=== PATIENT | female | born 1995 | race Caucasian/White ===

== ENCOUNTER 2017-12-05 12:51 | Outpatient (RCR) | payer BC, OTHER, MEDICAID, SELFPAY ==
[2017-11-20 12:35] LABS: Mucous, Urine 0 SEEN /hpf (<or=2+); Red Blood Cells-Urine 0 SEEN /hpf (0-5)
[2017-11-20 13:24] LABS: Color, Urine Yellow (Yellow); Glucose, Dipstick Normal (Normal); Ketone-Dipstick Negative (Negative); Leukocyte Esterase-Dipstick 25 /ul (Negative); Nitrite-Dipstick Negative (Negative); Occult Blood-Urine Negative /ul (Negative); Protein-Dipstick Negative (Negative); Specific Gravity, Urine 1.025 (1.002-1.030); Urine Bilirubin Dipstick Negative (Negative); Urine Clarity Sl. Cloudy (Clear); Urine Urobilinogen Normal (Normal)
[2017-11-20 13:40] LABS: Bacteria 2+ /hpf (None Seen); Squamous Epithelial Cells - UA 0-5 SEEN /hpf (5-10); White Blood Cells 0-5 SEEN /hpf (0-5)
[2017-11-20 13:44] LABS: Erythrocyte Sedimentation Rate 25 mm/hr (0-20)
[2017-11-20 13:58] LABS: Albumin, Serum 3.6 g/dL (3.4-5.0); BUN 17 mg/dL (7-18); BUN/Creat Ratio 25.3 RATIO (10-20); Creatinine, Serum 0.67 mg/dL (0.55-1.02); EST Glomerular Filtration Rate 115 mL/min (>60); Est Glom Filt Rate - Afr Amer 139 mL/min (>60); Glucose 90 mg/dL (70-110); Protein, Total 7.9 g/dL (6.4-8.2)
[2017-11-20 13:59] LABS: ALB/GLOB Ratio 0.8 RATIO (0.9-2.4); AST(SGOT) 26 U/L (15-37); Alanine Aminotransfer ALT/SGPT 35 U/L (12-78); Alkaline Phosphatase 88 U/L (45-117); Anion Gap 10 (5-15); CRP 5.07 mg/L (0.0-3.0); Chloride 103 mmol/L (98-107); Globulin 4.3 g/dL (2.2-4.2); Potassium 4.1 mmol/L (3.5-5.1); Sodium Level 139 mmol/L (136-145)
[2017-11-21 13:50] LABS: Anti-dsDNA Ab 1 IU/mL (0-9)
[2017-11-21 17:05] LABS: Complement C3 144 mg/dL (82-167)
[2017-12-05 13:14] LABS: Hematocrit 43.5 % (37-47); Hemoglobin 14.8 g/dl (12.0-15.0); Mean Corpuscular Hgb 31.3 pg (27.0-32.0); Mean Platelet Vol. 11.3 fl (6.2-12.0); Platelet Count 207 K/mm3 (150-450); RBC Distribution Width CV 12.2 % (11.6-14.6); RBC Distribution Width SD 40.9 fl (35.1-43.9); Red Blood Count 4.73 M/mm3 (4.2-5.4); White Blood Count 6.2 K/mm3 (4.4-11.0)
[2017-12-05 13:15] LABS: Scan Indicated on CBC? Y/N NO
== END 2017-12-05 13:50 | disposition home or self-care (01) ==
LOC: LAB 12:51
PROVIDERS: Family Provider Family Medicine; PCP Family Medicine; Visit Provider Internal Medicine Rheumatology
DX: M32.9 Systemic lupus erythematosus, unspecified (principal)
CPT/HCPCS: 36415; 80053; 81001; 85027; 85652; 86140; 86160; 86225

== ENCOUNTER → 2018-02-12 08:05 | Outpatient (CLI) | payer BC, OTHER, MEDICAID, SELFPAY ==
[2018-02-12 08:25] LABS: Mucous, Urine 0 SEEN /hpf (<or=2+); Red Blood Cells-Urine 0 SEEN /hpf (0-5)
[2018-02-12 09:12] LABS: Color, Urine Yellow (Yellow); Glucose, Dipstick Normal (Normal); Ketone-Dipstick Negative (Negative); Leukocyte Esterase-Dipstick 25 /ul (Negative); Nitrite-Dipstick Negative (Negative); Occult Blood-Urine Negative /ul (Negative); Protein-Dipstick Negative (Negative); Specific Gravity, Urine 1.015 (1.002-1.030); Urine Bilirubin Dipstick Negative (Negative); Urine Clarity Sl. Cloudy (Clear); Urine Urobilinogen Normal (Normal)
[2018-02-12 09:13] LABS: Absolute Lymphocyte Count 1.35 X10^3/ul (0.83-4.51); Absolute Neutrophil Count 2.8 X10^3/uL (2.0-7.7); Basophil# 0.02 X10^3/uL; Basophil% 0.4 % (0-1); Eosinophil# 0.11 X10^3/uL; Eosinophils% 2.2 % (0-5); Hematocrit 42.9 % (37-47); Hemoglobin 14.8 g/dl (12.0-15.0); Lymphocyte # 1.35 X10^3/ul (4.0); Lymphocyte % 27.4 % (19-41); Mean Corp Hgb Conc 34.5 g/gl (32-36); Mean Corpuscular Hgb 31.8 pg (27.0-32.0); Mean Corpuscular Volume 92.3 fL (81-99); Mean Platelet Vol. 11.6 fl (6.2-12.0); Monocyte# 0.61 X10^3/uL; Monocyte% 12.4 % (0-10); Neutrophil # 2.83 X10^3/uL (2.7-7.7); Neutrophil % 57.4 % (47-70); Platelet Count 156 K/mm3 (150-450); RBC Distribution Width CV 11.7 % (11.6-14.6); RBC Distribution Width SD 39.3 fl (35.1-43.9); Red Blood Count 4.65 M/mm3 (4.2-5.4); White Blood Count 4.9 K/mm3 (4.4-11.0)
[2018-02-12 09:15] LABS: POSITIVE COUNT NO; POSITIVE DIFFERENTIAL NO; POSITIVE MORPHOLOGY NO
[2018-02-12 09:22] LABS: Bacteria 1+ /hpf (None Seen); Squamous Epithelial Cells - UA 5-10 SEEN /hpf (5-10); White Blood Cells 0-5 SEEN /hpf (0-5)
[2018-02-12 09:44] LABS: AST(SGOT) 23 U/L (15-37); Alanine Aminotransfer ALT/SGPT 28 U/L (13-56); Albumin, Serum 3.6 g/dL (3.2-5.0); BUN 16 mg/dL (7-18); CRP 3.03 mg/L (0.0-3.0); Creatinine, Serum 0.71 mg/dL (0.55-1.02); EST Glomerular Filtration Rate 108 mL/min (>60); Est Glom Filt Rate - Afr Amer 131 mL/min (>60)
[2018-02-13 13:47] LABS: Complement C3 148 mg/dL (82-167)
[2018-02-13 16:29] LABS: Anti-dsDNA Ab 1 IU/mL (0-9)
== END ==
PROVIDERS: Family Provider Family Medicine; PCP Family Medicine; Visit Provider Internal Medicine Rheumatology
DX: M32.9 Systemic lupus erythematosus, unspecified (principal)
CPT/HCPCS: 36415; 81001; 82040; 82565; 84450; 84460; 84520; 85025; 86140; 86160; 86225; 87086; 87088

== ENCOUNTER 2018-07-24 09:52 | Emergency (ER) | payer BC, OTHER, MEDICAID, SELFPAY ==
[2018-07-24 09:54] VITALS: BP 120/87; PULSE 127; RESP 18; TEMP 37; O2SAT 97; BMI 32.7
--- NOTE | 2018-07-24 10:14 | CT_ITS ---
STUDY: CT ABDOMEN AND PELVIS WITH CONTRAST REASON FOR EXAM: Female, 23 years old. Right-sided abdominal pain. History of Angleman syndrome. RADIATION DOSAGE (If Supplied By Facility): CTDIvol = ( 17.02 ) mGy, DLP = ( 2071.12 ) mGycm TECHNIQUE: Transaxial images were obtained from the dome of the diaphragm to the symphysis pubis without oral contrast. 100 ml of Isovue 300 contrast was administered. Sagittal and coronal images were reconstructed. Individualized dose optimization techniques were used for this CT. COMPARISON: None. FINDINGS: The visualized lung bases are unremarkable. The visualized portions of the heart are within normal limits. Normal liver. Normal gallbladder and extrahepatic biliary system. Normal spleen. Normal pancreas. Normal bilateral adrenal glands. Stable focal scar along the posterior aspect of the right kidney. Normal left kidney. Normal visualized stomach. Normal small intestine. Normal colon. The appendix is visualized and appears normal. Normal abdominal aorta. Normal inferior vena cava. There is borderline retroperitoneal lymphadenopathy with enlarged nodes no greater than 10mm in the short axis diameter. Normal urinary bladder. Small amount of free fluid in the cul-de-sac. Follicles are seen in both ovaries. Small benign-appearing lymph nodes in the inguinal regions bilaterally. Normal abdominal wall. Stable spondylolysis of the pars interarticularis of the L5 vertebrae. CT/Abdomen/Pelvis W IV Cont ONLY IMPRESSION: Stable focal scar in the posterolateral aspect of the right kidney. Small amount of free fluid in the cul-de-sac. Bilateral ovarian follicles. Electronically Signed: Leoncio Merlos MD at 12:04 EDT Tel [phone], Service support ,
[2018-07-24] MEDS: Ondansetron 4 MG/2 ML Vial IV (10:36)
[2018-07-24] MEDS: 0.9% Normal Saline 1,000 ML 1000 ML IV (10:36)
[2018-07-24 10:43] LABS: Absolute Lymphocyte Count 0.86 X10^3/ul (0.83-4.51); Absolute Neutrophil Count 8.5 X10^3/uL (2.0-7.7); Basophil# 0.01 X10^3/uL; Basophil% 0.1 % (0-1); Eosinophil# 0.03 X10^3/uL; Eosinophils% 0.3 % (0-5); Hematocrit 42.2 % (37-47); Lymphocyte # 0.86 X10^3/ul (4.0); Mean Corp Hgb Conc 33.2 g/gl (32-36); Mean Corpuscular Volume 93.4 fL (81-99); Mean Platelet Vol. 10.9 fl (6.2-12.0); Monocyte# 1.33 X10^3/uL; Monocyte% 12.4 % (0-10); Neutrophil # 8.52 X10^3/uL (2.7-7.7); Neutrophil % 79.2 % (47-70); Platelet Count 147 K/mm3 (150-450); RBC Distribution Width CV 11.8 % (11.6-14.6); Red Blood Count 4.52 M/mm3 (4.2-5.4); White Blood Count 10.8 K/mm3 (4.4-11.0)
[2018-07-24 10:44] LABS: POSITIVE COUNT NO; POSITIVE DIFFERENTIAL NO; POSITIVE MORPHOLOGY NO
[2018-07-24 10:49] LABS: Color, Urine Yellow (Yellow); Glucose, Dipstick Normal (Normal); Ketone-Dipstick Negative (Negative); Leukocyte Esterase-Dipstick 100 /ul (Negative); Nitrite-Dipstick Positive (Negative); Occult Blood-Urine 25 /ul (Negative); Protein-Dipstick 30 mg/dl (Negative); Specific Gravity, Urine 1.015 (1.002-1.030); Urine Bilirubin Dipstick Negative (Negative); Urine Clarity Sl. Cloudy (Clear); Urine Urobilinogen Normal (Normal)
[2018-07-24 10:55] LABS: Bacteria 4+ /hpf (None Seen); Mucous, Urine 1+ /hpf (<or=2+); Red Blood Cells-Urine 0-5 SEEN /hpf (0-5); Squamous Epithelial Cells - UA 5-10 SEEN /hpf (5-10); White Blood Cells 10-25 SEEN /hpf (0-5)
[2018-07-24 11:05] LABS: AST(SGOT) 18 U/L (15-37); Alanine Aminotransfer ALT/SGPT 28 U/L (13-56); Albumin, Serum 3.7 g/dL (3.2-5.0); Alkaline Phosphatase 93 U/L (45-117); Anion Gap 8 (5-15); BUN 15 mg/dL (7-18); BUN/Creat Ratio 18.7 RATIO (10-20); Bilirubin, Direct 0.14 mg/dL (0.00-0.30); Calcium,Total 9.3 mg/dL (8.5-10.1); Chloride 101 mmol/L (98-107); EST Glomerular Filtration Rate 93 mL/min (>60); Est Glom Filt Rate - Afr Amer 113 mL/min (>60); Estimated Creatinine Clearance 97.57 ml/min; Globulin 4.4 g/dL (2.2-4.2); Glucose 88 mg/dL (74-106); Lipase 69 U/L (73-393); Potassium 4.6 mmol/L (3.5-5.1); Protein, Total 8.1 g/dL (6.4-8.2); Sodium Level 135 mmol/L (136-145)
[2018-07-24 11:26] LABS: Pregnancy, Serum, hCG Quali. NEGATIVE Negative (0-9 Nonpreg)
[2018-07-24 12:26] VITALS: BP 111/76; PULSE 82; RESP 16; O2SAT 98
--- NOTE | 2018-07-24 12:44 | ED.DCSUM_ITS ---
- ER Visit Summary Date of Service: 07/24/18 Chief Complaint: Fever and abdominal pain History of Present Illness: The patient is a 23 F who is nonverbal due to a chronic neurological syndrome. Yesterday started having some mild right-sided abdominal. Nausea without vomiting. No significant diarrhea. Similar episode in the past with a renal abscess. She still has her appendix. Patient herself is unable to give any history. History per the mom in the room. Physical Examination: Current temperature 98.6. HEENT exam unremarkable. Moist and pink. No erythema or exudate. Neck nontender. Lungs clear to auscultation bilaterally. Heart tachycardic no murmur. Abdomen soft nondistended normal bowel sounds no peritoneal signs. Absolutely no McBurney's point tenderness. No Andres sign. No hernias or masses. No distention. No obstruction. Moving all 4 extremities. Neurologically she is awake her eyes are open. Test Results: CT abdomen pelvis with IV contrast shows a stable scar in the right kidney. And bilateral ovarian follicles. The appendix is seen and is unremarkable. CBC shows a white count of 10. Platelet count 147,000. Electrolytes are unremarkable. Liver enzymes are normal. Lipase normal. UA shows 10-25 white cells 5 to epithelial cells 4+ bacteria. A culture was sent. test is negative. Emergency Department Course and Treatment: Repeat exam patient is doing well at 1240. Abdomen is benign. She will be treated with 1 p.o. Keflex here in the emergency department. Treatment Plan: Keflex 4 times daily for 7 days. Tylenol and Motrin for fever. Follow-up with a primary care physician Dr. Deejay Chicas iii. Disposition: Discharge Impression: Abdominal pain with fever secondary to acute UTI This note was generated with [employer] dictation software. It may contain incorrect words, spelling, and punctuation that were not noted in review of the chart prior to signing ED Disposition - Plan for ED Patient: Chief Complaint: Abd Pain Referrals: Deejay Chicas III, MD [Primary Care Provider] -
--- NOTE | 2018-07-24 12:44 | ED.DEP ---
ED Disposition - Plan for ED Patient: Disposition: Home or Assisted Living Chief Complaint: Abd Pain Instructions: ED UTI Cystitis Female Prescriptions: Cephalexin [Keflex] 500 mg PO Q6 #30 cap Fluconazole [Diflucan] 200 mg PO X1 #2 tab Referrals: Deejay Chicas III, MD [Primary Care Provider] - 3-5 Days if not improving Additional Instructions: Plenty of fluids and rest. Keflex 1 pill 4 times a day till gone. Tylenol and Motrin for fever. Return if doing worse or follow-up your primary care physician to ensure she is improving.
[2018-07-24] MEDS: Cephalexin 250 MG Capsule 500 MG PO (12:46)
[2018-07-24 12:51] VITALS: BP 118/75; PULSE 85; RESP 16; O2SAT 98
== END 2018-07-24 13:00 | disposition home or self-care (01) ==
PROVIDERS: Emergency Provider Emergency Medicine; Family Provider Family Medicine; PCP Family Medicine
DX: N39.0 Urinary tract infection, site not specified (principal); R50.9 Fever, unspecified; R10.9 Unspecified abdominal pain; Z79.899 Other long term (current) drug therapy
CPT/HCPCS: 74177; 80048; 80076; 81001; 83690; 84703; 85025; 87077; 87086; 87088; 87186; 96361; 96374; 99284; J7030; Q9967; J2405

== ENCOUNTER 2018-08-13 16:23 | Outpatient (RCR) | payer BC, OTHER, MEDICAID, SELFPAY ==
[2018-08-13 17:12] LABS: Absolute Lymphocyte Count 2.12 X10^3/ul (0.83-4.51); Absolute Neutrophil Count 3.1 X10^3/uL (2.0-7.7); Basophil# 0.02 X10^3/uL; Basophil% 0.3 % (0-1); Eosinophil# 0.11 X10^3/uL; Eosinophils% 1.8 % (0-5); Hematocrit 40.5 % (37-47); Hemoglobin 13.4 g/dl (12.0-15.0); Lymphocyte # 2.12 X10^3/ul (4.0); Lymphocyte % 35.5 % (19-41); Mean Corp Hgb Conc 33.1 g/gl (32-36); Mean Corpuscular Hgb 30.8 pg (27.0-32.0); Mean Corpuscular Volume 93.1 fL (81-99); Mean Platelet Vol. 10.9 fl (6.2-12.0); Monocyte# 0.58 X10^3/uL; Monocyte% 9.7 % (0-10); Neutrophil # 3.14 X10^3/uL (2.7-7.7); Neutrophil % 52.5 % (47-70); Platelet Count 188 K/mm3 (150-450); RBC Distribution Width CV 11.9 % (11.6-14.6); RBC Distribution Width SD 40.4 fl (35.1-43.9); Red Blood Count 4.35 M/mm3 (4.2-5.4)
[2018-08-13 17:15] LABS: POSITIVE COUNT NO; POSITIVE DIFFERENTIAL NO; POSITIVE MORPHOLOGY NO
[2018-08-13 17:21] LABS: Protein, Urine (Random) 26.2 mg/dL (<11.9); Protein:Creat Ratio 198 mg/g CRE (0-200)
[2018-08-13 17:50] LABS: AST(SGOT) 22 U/L (15-37); Alanine Aminotransfer ALT/SGPT 37 U/L (13-56); Albumin, Serum 3.6 g/dL (3.2-5.0); BUN 16 mg/dL (7-18); CRP 4.58 mg/L (0.0-3.0); Creatinine, Serum 0.68 mg/dL (0.55-1.02); EST Glomerular Filtration Rate 113 mL/min (>60); Est Glom Filt Rate - Afr Amer 137 mL/min (>60)
[2018-08-15 11:27] LABS: Complement C3 142 mg/dL (82-167)
[2018-08-16 13:16] LABS: Anti-dsDNA Ab 2 IU/mL (0-9)
== END 2018-08-13 18:00 | disposition home or self-care (01) ==
LOC: LAB 16:23
PROVIDERS: Family Provider Family Medicine; PCP Family Medicine; Referring Provider Internal Medicine Rheumatology; Visit Provider Internal Medicine Rheumatology
DX: M32.9 Systemic lupus erythematosus, unspecified (principal)
CPT/HCPCS: 36415; 82040; 82565; 82570; 84156; 84450; 84460; 84520; 85025; 86140; 86160; 86225

== ENCOUNTER 2019-01-11 10:51 | Emergency (ER) | payer BC, OTHER, MEDICAID, SELFPAY ==
[2019-01-11 10:53] VITALS: BP 147/93; PULSE 90; RESP 15; TEMP 36.8; O2SAT 93; BMI 32.1
--- NOTE | 2019-01-11 11:03 | CT_ITS ---
STUDY: CT ABDOMEN AND PELVIS WITH CONTRAST REASON FOR EXAM: Female, 23 years old. Abdominal pain. Limited study due to patient motion artifact. RADIATION DOSAGE (If Supplied By Facility): CTDIvol = ( 12.48 ) mGy, DLP = ( 894.77 ) mGycm TECHNIQUE: Transaxial images were obtained from the dome of the diaphragm to the symphysis pubis with oral contrast. Isovue 300 100 IV/Oral was administered. Sagittal and coronal images were reconstructed. Individualized dose optimization techniques were used for this CT. COMPARISON: Comparison is made with prior study dated July 24, 2018. FINDINGS: The visualized lung bases are unremarkable. The visualized portions of the heart are within normal limits. Normal liver. Normal gallbladder and extrahepatic biliary system. Normal spleen. Normal pancreas. Normal bilateral adrenal glands. Stable focal scar along the posterior lateral aspect of the right kidney. Normal left kidney. Normal visualized stomach. Normal small intestine. A large amount of fecal material is seen in the rectosigmoid colon. The appendix is visualized and appears normal. Normal abdominal aorta. Normal inferior vena cava. Normal retroperitoneum. Normal urinary bladder. Follicles are seen in both ovaries. Normal abdominal wall. Spondylolysis of the pars interarticularis of the L5 vertebrae. CT/Abdomen/Pelvis WITH Contrast IMPRESSION: Large amount of fecal material is seen in the rectosigmoid colon. Electronically Signed: Leoncio Merlos, at 14:29 EST , Service support ,
[2019-01-11 11:35] LABS: Absolute Lymphocyte Count 1.66 X10^3/ul (0.83-4.51); Absolute Neutrophil Count 1.9 X10^3/uL (2.0-7.7); Basophil# 0.02 X10^3/uL; Basophil% 0.5 % (0-1); Eosinophil# 0.14 X10^3/uL; Eosinophils% 3.3 % (0-5); Hemoglobin 14.7 g/dl (12.0-15.0); Lymphocyte # 1.66 X10^3/ul (4.0); Lymphocyte % 38.7 % (19-41); Mean Corp Hgb Conc 32.7 g/gl (32-36); Mean Corpuscular Hgb 30.8 pg (27.0-32.0); Mean Corpuscular Volume 94.3 fL (81-99); Mean Platelet Vol. 10.9 fl (6.2-12.0); Monocyte# 0.52 X10^3/uL; Monocyte% 12.1 % (0-10); Neutrophil # 1.94 X10^3/uL (2.7-7.7); Neutrophil % 45.2 % (47-70); Platelet Count 176 K/mm3 (150-450); RBC Distribution Width CV 11.6 % (11.6-14.6); RBC Distribution Width SD 39.4 fl (35.1-43.9); Red Blood Count 4.77 M/mm3 (4.2-5.4); White Blood Count 4.3 K/mm3 (4.4-11.0)
[2019-01-11 11:36] LABS: POSITIVE COUNT NO; POSITIVE DIFFERENTIAL NO; POSITIVE MORPHOLOGY NO
[2019-01-11 11:40] LABS: Mucous, Urine 0 SEEN /hpf (<or=2+)
[2019-01-11 11:41] LABS: Color, Urine Yellow (Yellow); Glucose, Dipstick Normal (Normal); Ketone-Dipstick Negative (Negative); Leukocyte Esterase-Dipstick 25 /ul (Negative); Nitrite-Dipstick Negative (Negative); Occult Blood-Urine 10 /ul (Negative); Protein-Dipstick Negative (Negative); Urine Bilirubin Dipstick Negative (Negative); Urine Clarity Sl. Cloudy (Clear); Urine Urobilinogen Normal (Normal)
[2019-01-11 11:46] LABS: Bacteria 2+ /hpf (None Seen); Red Blood Cells-Urine 0-5 SEEN /hpf (0-5); Squamous Epithelial Cells - UA 0-5 SEEN /hpf (5-10); White Blood Cells 0-5 SEEN /hpf (0-5)
[2019-01-11 11:49] LABS: ALB/GLOB Ratio 0.9 RATIO (0.9-2.4); AST(SGOT) 25 U/L (15-37); Alanine Aminotransfer ALT/SGPT 30 U/L (13-56); Albumin, Serum 3.7 g/dL (3.2-5.0); Alkaline Phosphatase 74 U/L (45-117); Anion Gap 4 (5-15); BUN 15 mg/dL (7-18); BUN/Creat Ratio 21.4 RATIO (10-20); Calcium,Total 9.1 mg/dL (8.5-10.1); Chloride 104 mmol/L (98-107); EST Glomerular Filtration Rate 108 mL/min (>60); Est Glom Filt Rate - Afr Amer 131 mL/min (>60); Estimated Creatinine Clearance 111.51 ml/min; Globulin 4.2 g/dL (2.2-4.2); Glucose 89 mg/dL (74-106); Lipase 104 U/L (73-393); Potassium 4.3 mmol/L (3.5-5.1); Protein, Total 7.9 g/dL (6.4-8.2); Sodium Level 137 mmol/L (136-145)
[2019-01-11] MEDS: 0.9% Normal Saline 1,000 ML 125 ML IV (11:54)
[2019-01-11 13:10] LABS: Pregnancy, Serum, hCG Quali. NEGATIVE Negative (0-9 Nonpreg)
--- NOTE | 2019-01-11 15:09 | ED.VISSUMM ---
- ER Visit Summary Date of Service: 01/11/19 Chief Complaint: [Abdominal pain] History of Present Illness: The patient is a 23 F [presents to the emergency department with her caregiver and mother with complaint of abdominal pain that started about a week ago or so. Patient apparently started not acting like herself about a week ago. Patient is nonverbal and she is developmentally delayed. Mother states child has been mental ability of a toddler. She apparently did not eat lunch couple of days ago which is very unusual and she is been holding her right lower abdomen. She has not had a fever. There is been no vomiting. There is been no diarrhea. Last bowel movement was 2 days ago. Patient has history of some constipation issues in the past but she is been doing well. Patient's not had any abdominal surgeries. 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 Cranial nerves II through XII grossly intact. TMs clear. Mucous membranes moist. No adenopathy. Cardiovascular-regular rate and rhythm without murmur or ectopy Lungs-clear to auscultation, chest wall stable without crepitus or subcu emphysema Abdomen-normoactive bowel sounds, soft. Patient does have some tenderness palpation of the right lower quadrant with some guarding. There is no rebound, rigidity, or perineal signs. Rectal exam-patient does have some hard stool within the rectal vault but exam very difficult as patient really does not tolerate exam well. No masses palpated in the rectal vault. No external lesions noted. Extremities-intact ?4, normal range of motion, normal pulses, atraumatic] Test Results: CBC with differential obtained showing a 6.3, hemoglobin 14.7, hematocrit 45, platelets 176. Chemistries unremarkable. LFTs were normal. Urinalysis was normal. HCG was negative. CT scan with IV and p.o. contrast ordered showed large fecal material within the rectosigmoid colon otherwise nothing acute. [] Emergency Department Course and Treatment: [] Treatment Plan: [Advised mom on giving MiraLAX daily for maintenance to keep stool soft. Will discharge with magnesium citrate. Advised to follow-up with primary care physician within next 3-5 days.] Disposition: [Discharged home in stable condition. Advised to return if worsening pain, fever, vomiting, or condition should worsen anyway.] Impression: [Abdominal pain Constipation] This note was generated with [employer] dictation software. It may contain incorrect words, spelling, and punctuation that were not noted in review of the chart prior to signing ED Disposition - Plan for ED Patient: Referrals: Deejay Chicas III, MD [Primary Care Provider] -
--- NOTE | 2019-01-11 15:12 | ED.DEP ---
ED Disposition - Plan for ED Patient: Instructions: ED Abdominal Pain Unkn Cause, ED Constipation Referrals: Deejay Chicas III, MD [Primary Care Provider] - 3-5 Days
[2019-01-11 15:19] VITALS: PULSE 80; RESP 17; O2SAT 97; O2SAT 98
[2019-01-11] MEDS: Magnesium Citrate 300 ML 150 ML PO (15:21)
== END 2019-01-11 15:22 | disposition home or self-care (01) ==
LOC: ED 12:13
PROVIDERS: Emergency Provider Emergency Medicine; Family Provider Family Medicine; PCP Family Medicine
DX: K59.00 Constipation, unspecified (principal); R10.31 Right lower quadrant pain; D69.3 Immune thrombocytopenic purpura; Z79.899 Other long term (current) drug therapy
CPT/HCPCS: 74177; 80053; 81001; 83690; 84703; 85025; 96360; 96361; 99283; J7030; Q9967; A4216

== ENCOUNTER 2019-01-22 11:06 | Outpatient (RCR) | payer BC, OTHER, MEDICAID, SELFPAY ==
[2019-01-22 11:52] LABS: Protein, Urine (Random) 30.1 mg/dL (<11.9); Protein:Creat Ratio 210 mg/g CRE (0-200)
[2019-01-22 11:55] LABS: Absolute Lymphocyte Count 1.72 X10^3/ul (0.83-4.51); Absolute Neutrophil Count 2.1 X10^3/uL (2.0-7.7); Basophil# 0.02 X10^3/uL; Basophil% 0.4 % (0-1); Eosinophil# 0.12 X10^3/uL; Eosinophils% 2.7 % (0-5); Hematocrit 44.3 % (37-47); Hemoglobin 14.7 g/dl (12.0-15.0); Lymphocyte # 1.72 X10^3/ul (4.0); Lymphocyte % 38.4 % (19-41); Mean Corp Hgb Conc 33.2 g/gl (32-36); Mean Corpuscular Hgb 31.2 pg (27.0-32.0); Mean Corpuscular Volume 94.1 fL (81-99); Mean Platelet Vol. 11.6 fl (6.2-12.0); Monocyte# 0.55 X10^3/uL; Monocyte% 12.3 % (0-10); Neutrophil # 2.06 X10^3/uL (2.7-7.7); POSITIVE COUNT NO; POSITIVE DIFFERENTIAL NO; Platelet Count 190 K/mm3 (150-450); RBC Distribution Width CV 11.7 % (11.6-14.6); RBC Distribution Width SD 39.8 fl (35.1-43.9); Red Blood Count 4.71 M/mm3 (4.2-5.4); White Blood Count 4.5 K/mm3 (4.4-11.0)
[2019-01-22 11:56] LABS: POSITIVE MORPHOLOGY NO
[2019-01-22 12:32] LABS: AST(SGOT) 18 U/L (15-37); Alanine Aminotransfer ALT/SGPT 29 U/L (13-56); BUN 18 mg/dL (7-18); CRP < 2.90 mg/L (0.0-3.0); Creatinine, Serum 0.72 mg/dL (0.55-1.02); EST Glomerular Filtration Rate 105 mL/min (>60); Est Glom Filt Rate - Afr Amer 127 mL/min (>60)
[2019-01-23 15:16] LABS: Anti-dsDNA Ab 2 IU/mL (0-9)
[2019-01-23 15:19] LABS: Complement C3 148 mg/dL (82-167)
== END 2019-01-22 12:06 | disposition home or self-care (01) ==
LOC: LAB 11:06
PROVIDERS: Family Provider Family Medicine; PCP Family Medicine; Referring Provider Internal Medicine Rheumatology; Visit Provider Internal Medicine Rheumatology
DX: M32.9 Systemic lupus erythematosus, unspecified (principal)
CPT/HCPCS: 36415; 82040; 82565; 82570; 84156; 84450; 84460; 84520; 85025; 86140; 86160; 86225

== ENCOUNTER 2019-07-24 08:00 | Outpatient (RCR) | payer BC, OTHER, MEDICAID, SELFPAY ==
[2019-07-23 16:29] LABS: Absolute Neutrophil Count 3.2 X10^3/uL (2.0-7.7); Basophil# 0.03 X10^3/uL; Basophil% 0.5 % (0-1); Eosinophil# 0.12 X10^3/uL; Hematocrit 42.3 % (37-47); Hemoglobin 13.9 g/dL (12.0-15.0); Lymphocyte % 36.1 % (19-41); Mean Corp Hgb Conc 32.9 g/dL (32-36); Mean Corpuscular Hgb 30.8 pg (27.0-32.0); Mean Corpuscular Volume 93.8 fL (81-99); Mean Platelet Vol. 11.6 fl (6.2-12.0); Monocyte# 0.55 X10^3/uL; NRBC Flagged by Analyzer 0 % (0-5); Neutrophil # 3.19 X10^3/uL (2.7-7.7); Neutrophil % 52.2 % (47-70); Platelet Count 191 K/mm3 (150-450); RBC Distribution Width CV 11.4 % (11.6-14.6); Red Blood Count 4.51 M/mm3 (4.2-5.4); White Blood Count 6.1 K/mm3 (4.4-11.0)
[2019-07-23 16:55] LABS: AST(SGOT) 21 U/L (15-37); Alanine Aminotransfer ALT/SGPT 27 U/L (13-56); Albumin, Serum 3.7 g/dL (3.2-5.0); BUN 14 mg/dL (7-18); CRP < 2.90 mg/L (0.0-3.0); EST Glomerular Filtration Rate 108 mL/min (>60); Est Glom Filt Rate - Afr Amer 131 mL/min (>60)
[2019-07-24 08:32] LABS: Protein, Urine (Random) 13.9 mg/dL (<11.9); Protein:Creat Ratio 149 mg/g CRE (0-200)
[2019-07-29 12:38] LABS: Anti-dsDNA Ab 1 IU/mL (0-9)
[2019-07-29 12:43] LABS: Complement C3 132 mg/dL (82-167)
== END 2019-07-24 09:00 | disposition home or self-care (01) ==
LOC: LAB 08:00
PROVIDERS: Family Provider Family Medicine; PCP Family Medicine; Referring Provider Internal Medicine Rheumatology; Visit Provider Internal Medicine Rheumatology
DX: M32.9 Systemic lupus erythematosus, unspecified (principal)
CPT/HCPCS: 36415; 82040; 82565; 82570; 84156; 84450; 84460; 84520; 85025; 86140; 86160; 86225

== ENCOUNTER 2020-01-21 14:52 | Outpatient (RCR) | payer BC, MEDICAID, SELFPAY ==
[2020-01-21 16:59] LABS: Absolute Lymphocyte Count 1.96 X10^3/uL (0.83-4.51); Absolute Neutrophil Count 2.7 X10^3/uL (2.0-7.7); Basophil# 0.04 X10^3/uL; Basophil% 0.8 % (0-1); Eosinophils% 1.9 % (0-5); Hemoglobin 13.7 g/dL (12.0-15.0); Lymphocyte # 1.96 X10^3/ul (4.0); Lymphocyte % 37.3 % (19-41); Mean Corp Hgb Conc 32.6 g/dL (32-36); Mean Corpuscular Hgb 30.6 pg (27.0-32.0); Mean Platelet Vol. 11.8 fl (6.2-12.0); Monocyte# 0.47 X10^3/uL; Monocyte% 8.9 % (0-10); NRBC Flagged by Analyzer 0 % (0-5); Neutrophil # 2.68 X10^3/uL (2.7-7.7); Neutrophil % 50.9 % (47-70); Platelet Count 209 K/mm3 (150-450); RBC Distribution Width CV 11.6 % (11.6-14.6); RBC Distribution Width SD 39.8 fl (35.1-43.9); Red Blood Count 4.47 M/mm3 (4.2-5.4); White Blood Count 5.3 K/mm3 (4.4-11.0)
[2020-01-21 17:00] LABS: Protein, Urine (Random) 36.1 mg/dL (<11.9); Protein:Creat Ratio 207 mg/g CRE (0-200)
[2020-01-21 17:27] LABS: AST(SGOT) 21 U/L (15-37); Alanine Aminotransfer ALT/SGPT 26 U/L (13-56); Albumin, Serum 3.8 g/dL (3.2-5.0); BUN 18 mg/dL (7-18); CRP < 2.90 mg/L (0.0-3.0); Creatinine, Serum 0.63 mg/dL (0.55-1.02); EST Glomerular Filtration Rate 123 mL/min (>60); Est Glom Filt Rate - Afr Amer 148 mL/min (>60)
[2020-01-24 04:07] LABS: Dilute Prothrombin Time (dPT) 41.1 sec (0.0-55.0); Dilute Russell Viper Venom 40.3 sec (0.0-47.0); PTT-LA 42.4 sec (0.0-51.9); Thrombin Time 18.4 sec (0.0-23.0); dPT Confirm Ratio 0.98 Ratio (0.00-1.40)
[2020-01-24 10:16] LABS: Complement C3 118 mg/dL (82-167); Interpretation Comment: (.)
[2020-01-24 11:26] LABS: Anti-dsDNA Ab 2 IU/mL (0-9)
== END 2020-01-21 18:00 | disposition home or self-care (01) ==
LOC: LAB 14:52
PROVIDERS: Family Provider Family Medicine; PCP Family Medicine; Referring Provider Internal Medicine Rheumatology; Visit Provider Internal Medicine Rheumatology
DX: M32.9 Systemic lupus erythematosus, unspecified (principal)
CPT/HCPCS: 36415; 82040; 82565; 82570; 84156; 84450; 84460; 84520; 85025; 86140; 86147; 86160; 86225

== ENCOUNTER → 2020-11-17 08:13 | Outpatient (CLI) | payer BC, OTHER, MEDICAID, SELFPAY ==
[2020-11-17 12:18] LABS: Absolute Lymphocyte Count 1.33 X10^3/uL (0.83-4.51); Absolute Neutrophil Count 2.4 X10^3/uL (2.0-7.7); Basophil# 0.01 X10^3/uL; Basophil% 0.2 % (0-1); Eosinophil# 0.12 X10^3/uL; Eosinophils% 2.7 % (0-5); Hematocrit 47.6 % (37-47); Hemoglobin 15.3 g/dL (12.0-15.0); Lymphocyte # 1.33 X10^3/ul (4.0); Lymphocyte % 30.4 % (19-41); Mean Corp Hgb Conc 32.1 g/dL (32-36); Mean Corpuscular Hgb 30.4 pg (27.0-32.0); Mean Corpuscular Volume 94.4 fL (81-99); Mean Platelet Vol. 12.3 fl (6.2-12.0); Monocyte# 0.48 X10^3/uL; NRBC Flagged by Analyzer 0 % (0-5); Neutrophil # 2.42 X10^3/uL (2.7-7.7); Neutrophil % 55.5 % (47-70); Platelet Count 180 K/mm3 (150-450); RBC Distribution Width CV 11.4 % (11.6-14.6); RBC Distribution Width SD 39.3 fl (35.1-43.9); Red Blood Count 5.04 M/mm3 (4.2-5.4); White Blood Count 4.4 K/mm3 (4.4-11.0)
[2020-11-17 12:35] LABS: AST(SGOT) 21 U/L (15-37); Alanine Aminotransfer ALT/SGPT 31 U/L (13-56); Albumin, Serum 4.1 g/dL (3.2-5.0); BUN 14 mg/dL (7-18); CRP < 2.90 mg/L (0.0-3.0); Creatinine, Serum 0.72 mg/dL (0.55-1.02); EST Glomerular Filtration Rate 103 mL/min (>60); Est Glom Filt Rate - Afr Amer 125 mL/min (>60)
[2020-11-17 12:55] LABS: Protein, Urine (Random) 18.5 mg/dL (<11.9); Protein:Creat Ratio 170 mg/g CRE (0-200)
[2020-11-18 08:36] LABS: Complement C3 134 mg/dL (82-167)
[2020-11-18 20:55] LABS: Anti-dsDNA Ab 2 IU/mL (0-9)
== END ==
PROVIDERS: PCP Family Medicine; Referring Provider Internal Medicine Rheumatology; Visit Provider Internal Medicine Rheumatology
DX: M32.9 Systemic lupus erythematosus, unspecified (principal)
CPT/HCPCS: 36415; 82040; 82565; 82570; 84156; 84450; 84460; 84520; 85025; 86140; 86160; 86225

== ENCOUNTER → 2021-05-25 08:19 | Outpatient (CLI) | payer BC, OTHER, MEDICAID, SELFPAY ==
[2021-05-25 12:08] LABS: Absolute Lymphocyte Count 1.49 X10^3/uL (0.83-4.51); Absolute Neutrophil Count 2.1 X10^3/uL (2.0-7.7); Basophil# 0.02 X10^3/uL; Basophil% 0.5 % (0-1); Eosinophil# 0.11 X10^3/uL; Eosinophils% 2.7 % (0-5); Hematocrit 44.4 % (37-47); Hemoglobin 14.4 g/dL (12.0-15.0); Lymphocyte # 1.49 X10^3/ul (0.83-4.51); Lymphocyte % 36.1 % (19-41); Mean Corp Hgb Conc 32.4 g/dL (32-36); Mean Corpuscular Hgb 30.8 pg (27.0-32.0); Mean Corpuscular Volume 94.9 fL (81-99); Mean Platelet Vol. 11.4 fl (6.2-12.0); Monocyte# 0.44 X10^3/uL; Monocyte% 10.7 % (0-10); NRBC Flagged by Analyzer 0 % (0-5); Neutrophil # 2.06 X10^3/uL (2.7-7.7); Neutrophil % 49.8 % (47-70); Platelet Count 205 K/mm3 (150-450); RBC Distribution Width CV 11.4 % (11.6-14.6); RBC Distribution Width SD 39.4 fl (35.1-43.9); Red Blood Count 4.68 M/mm3 (4.2-5.4); White Blood Count 4.1 K/mm3 (4.4-11.0)
[2021-05-25 12:38] LABS: AST(SGOT) 22 U/L (15-37); Alanine Aminotransfer ALT/SGPT 31 U/L (13-56); Albumin, Serum 3.8 g/dL (3.2-5.0); BUN 16 mg/dL (7-18); CRP 3.11 mg/L (0.0-3.0); Creatinine, Serum 0.78 mg/dL (0.55-1.02); EST Glomerular Filtration Rate 94 mL/min (>60); Est Glom Filt Rate - Afr Amer 113 mL/min (>60)
[2021-05-25 13:18] LABS: Protein, Urine (Random) 41.1 mg/dL (<11.9); Protein:Creat Ratio 345 mg/g CRE (0-200)
[2021-05-26 15:05] LABS: Complement C3 144 mg/dL (82-167)
[2021-05-27 16:21] LABS: Anti-dsDNA Ab 1 IU/mL (0-9)
== END ==
PROVIDERS: PCP Family Medicine; Visit Provider Internal Medicine Rheumatology
DX: M32.9 Systemic lupus erythematosus, unspecified (principal)
CPT/HCPCS: 36415; 82040; 82565; 82570; 84156; 84450; 84460; 84520; 85025; 86140; 86160; 86225

== ENCOUNTER 2021-11-25 08:18 | Outpatient (CLI) | payer BC, OTHER, MEDICAID, SELFPAY ==
[2021-11-25 12:13] LABS: Absolute Lymphocyte Count 1.24 X10^3/uL (0.83-4.51); Absolute Neutrophil Count 3.4 X10^3/uL (2.0-7.7); Basophil# 0.03 X10^3/uL; Basophil% 0.6 % (0-1); Eosinophil# 0.13 X10^3/uL; Eosinophils% 2.4 % (0-5); Hematocrit 44.4 % (37-47); Hemoglobin 14.8 g/dL (12.0-15.0); Lymphocyte # 1.24 X10^3/ul (0.83-4.51); Lymphocyte % 23.2 % (19-41); Mean Corp Hgb Conc 33.3 g/dL (32-36); Mean Corpuscular Hgb 31.2 pg (27.0-32.0); Mean Corpuscular Volume 93.7 fL (81-99); Mean Platelet Vol. 11.7 fl (6.2-12.0); Monocyte# 0.55 X10^3/uL; Monocyte% 10.3 % (0-10); NRBC Flagged by Analyzer 0 % (0-5); Neutrophil # 3.38 X10^3/uL (2.7-7.7); Neutrophil % 63.3 % (47-70); Platelet Count 189 K/mm3 (150-450); RBC Distribution Width CV 11.3 % (11.6-14.6); Red Blood Count 4.74 M/mm3 (4.2-5.4); White Blood Count 5.3 K/mm3 (4.4-11.0)
[2021-11-25 12:26] LABS: Protein, Urine (Random) 22.1 mg/dL (<11.9); Protein:Creat Ratio 123 mg/g CRE (0-200)
[2021-11-25 12:30] LABS: AST(SGOT) 18 U/L (15-37); Alanine Aminotransfer ALT/SGPT 32 U/L (13-56); Albumin, Serum 3.8 g/dL (3.2-5.0); BUN 15 mg/dL (7-18); CRP 3.66 mg/L (0.0-3.0); EST Glomerular Filtration Rate 106 mL/min (>60); Est Glom Filt Rate - Afr Amer 128 mL/min (>60)
[2021-11-26 11:30] LABS: Complement C3 138 mg/dL (82-167)
[2021-11-27 16:23] LABS: Anti-dsDNA Ab 1 IU/mL (0-9)
== END 2021-11-25 23:59 | disposition short-term general hospital (02) ==
PROVIDERS: Referring Provider Internal Medicine Rheumatology; Visit Provider Internal Medicine Rheumatology
DX: M32.9 Systemic lupus erythematosus, unspecified (principal)
CPT/HCPCS: 36415; 82040; 82565; 82570; 84156; 84450; 84460; 84520; 85025; 86140; 86160; 86225

== ENCOUNTER 2022-02-08 04:29 | Emergency (ER) | payer BC, OTHER, MEDICAID, SELFPAY ==
[2022-02-08 04:30] VITALS: BP 114/48; PULSE 89; RESP 16; TEMP 36.1; O2SAT 96; BMI 14.1
[2022-02-08 04:33] VITALS: BP 114/48; PULSE 89; RESP 16; TEMP 36.1; O2SAT 96
--- NOTE | 2022-02-08 04:47 | EX.ED.DYSGE1 ---
HPI History of Present Illness Chief Complaint: Nausea/Vomiting Informant: parent Onset/Context/Timing Onset: Yesterday Current Severity: Moderate Maximum Severity: Moderate Narrative Narrative: Patient presents secondary to nausea and vomiting. Mother states that she had a single episode of vomiting around noon yesterday. Around 8 PM or so last evening she started vomiting every 30 minutes or so throughout the night. No fever or chills. Mom states she does point to her epigastric area and describing pain. No diarrhea. PFSH PFSH Medical History Lupus Nonverbal Home Medications fluoxetine 20 mg PO DAILY 07/24/18 [History Last Taken 07/03/18] hydroxychloroquine 200 mg PO DAILYCM 07/24/18 [History Last Taken Unknown] ondansetron 4 mg PO Q8H PRN #10 tab 02/08/22 [Rx Last Taken Unknown] Allergy/AdvReac Type Severity Reaction Status Date / Time No Known Allergies Allergy Verified 02/08/22 04:34 Social History Smoking Status: Never smoker ROS ROS ED ROS Narrative Review of systems limited secondary to nonverbal status of patient. Constitutional Constitutional ED: Denies chills or fever(s) Respiratory/Chest Respiratory/Chest: Denies cough Gastrointestinal Gastrointestinal: Reports abdominal pain, nausea and vomiting; Denies diarrhea EXAM Physical Exam Const Vital Signs: 02/08/22 04:30 02/08/22 04:33 02/08/22 05:41 Temperature 96.9 F L 96.9 F L 97.2 F L Temperature Source Temporal Temporal Oral Pulse Rate 89 89 82 Respiratory Rate 16 16 16 Blood Pressure 114/48 L 114/48 L 124/86 H Blood Pressure Mean 70 70 98 Pulse Ox 96 96 98 Oxygen Delivery Method Room Air Room Air Room Air Positive well nourished and well developed General Appearance ED: well developed HEENT Reports moist mucous membranes Eyes EOMs intact bilaterally Neck supple Chest Wall inspection of chest normal and palpation of chest normal Resp normal respiratory effort and clear to auscultation bilaterally Cardio regular rate and regular rhythm GI Auscultation: hypoactive bowel sounds Palpation: soft and tender epigastric Extremity normal to inspection Neuro Neuro Narrative: Moves all 4 extremities. Sensorium / Orientation: alert Skin no rashes or lesions noted MDM MDM MDM Narrative Medical decision making narrative: Patient given a liter IV fluids along with Zofran and Protonix. Lab work and urinalysis obtained. Lab Data Attestation: I reviewed the patient's lab results. Labs: Laboratory Results - last 24 hr 02/08/22 02/08/22 02/08/22 04:45 04:57 04:57 WBC 7.8 RBC 4.95 Hgb 15.9 H Hct 45.7 MCV 92.3 MCH 32.1 H MCHC 34.8 RDW Std Deviation 38.5 RDW Coeff of [place] 11.4 L Plt Count 186 MPV 11.1 Immature Gran % (Auto) 0.300 Neut % (Auto) 80.4 H Lymph % (Auto) 11.7 L [place] % (Auto) 6.8 Eos % (Auto) 0.5 Baso % (Auto) 0.3 Absolute Neuts (auto) 6.3 Absolute Lymphs (auto) 0.91 Nucleated RBC % 0 Sodium 135 L Potassium 4.3 Chloride 101 Carbon Dioxide 28.0 Anion Gap 6 BUN 19 H Creatinine 0.74 Estim Creat Clear Calc 71.55 Est GFR (MDRD) Af Amer 120 Est GFR (MDRD) Non-Af 99 BUN/Creatinine Ratio 25.5 H Glucose 90 Calcium 9.3 Total Bilirubin 0.50 Direct Bilirubin 0.17 AST 20 ALT 27 Alkaline Phosphatase 82 Total Protein 8.2 Albumin 4.2 Globulin 4.0 Lipase 79 Urine Color Yellow Urine Clarity Clear Urine pH 5.0 Ur Specific [place] 1.030 Urine Protein 30 H Urine Glucose (UA) Normal Urine Ketones 150 A* Urine Occult Blood 10 H Urine Nitrite Negative Urine Bilirubin 1 H Urine Urobilinogen 1 H Ur Leukocyte Esterase 25 H Urine RBC 0 SEEN Urine WBC 0-5 SEEN Ur Squamous Epith Cells 0 SEEN Amorphous Sediment 1+ Urine Bacteria 3+ Urine Mucus 0 SEEN Treatment and Re-Evaluation Narrative: On repeat evaluation patient resting comfortably. Mom reports no more dry heaves or vomiting. Lab work is largely unremarkable. She does have 150 ketones noted in her urine and hemoglobin is slightly concentrated. Patient is given p.o. fluid challenge. She tolerates this without difficulty. Prescription for Zofran will be given. Discharge Plan Triage Chief Complaint: Nausea/Vomiting ED Provider: Danielle Valdez Dx/Rx/DC Orders Clinical Impression: Vomiting Instructions: ED Vomiting (Adult) Prescriptions: New ondansetron 4 mg tablet,disintegrating 4 mg PO Q8H PRN (Reason: nausea and vomiting) Qty: 10 RF: 0 No Action hydroxychloroquine 200 MG tablet 200 mg PO DAILYCM RF: 0 fluoxetine 20 MG capsule 20 mg PO DAILY RF: 0 Primary Care Provider: Damir Handley Referrals: Damir Handley MD [Primary Care Provider] - 3-5 Days if not improving Disposition Disposition: Home, Self Care
[2022-02-08 04:50] LABS: Mucous, Urine 0 SEEN /hpf (<or=2+); Red Blood Cells-Urine 0 SEEN /hpf (0-5); Squamous Epithelial Cells - UA 0 SEEN /hpf (5-10)
[2022-02-08 04:51] LABS: Color, Urine Yellow (Yellow); Glucose, Dipstick Normal (Normal); Leukocyte Esterase-Dipstick 25 /ul (Negative); Nitrite-Dipstick Negative (Negative); Occult Blood-Urine 10 /ul (Negative); Protein-Dipstick 30 mg/dl (Negative); Urine Clarity Clear (Clear); Urine Urobilinogen 1 mg/dl (Normal)
[2022-02-08 04:52] LABS: Urine Bilirubin Dipstick 1 mg/dL (Negative)
[2022-02-08 04:53] LABS: Ketone-Dipstick 150 mg/dl (Negative)
[2022-02-08 04:56] LABS: Bacteria 3+ /hpf (None Seen); White Blood Cells 0-5 SEEN /hpf (0-5)
[2022-02-08 04:57] LABS: Amorphous Sediment 1+
[2022-02-08] MEDS: Ondansetron 4 MG/2 ML Vial IV (05:01)
[2022-02-08] MEDS: 0.9% Normal Saline 1,000 ML 150 ML IV (05:04)
[2022-02-08 05:06] LABS: Absolute Lymphocyte Count 0.91 X10^3/uL (0.83-4.51); Absolute Neutrophil Count 6.3 X10^3/uL (2.0-7.7); Basophil# 0.02 X10^3/uL; Basophil% 0.3 % (0-1); Eosinophil# 0.04 X10^3/uL; Eosinophils% 0.5 % (0-5); Hematocrit 45.7 % (37-47); Hemoglobin 15.9 g/dL (12.0-15.0); Lymphocyte # 0.91 X10^3/ul (0.83-4.51); Lymphocyte % 11.7 % (19-41); Mean Corp Hgb Conc 34.8 g/dL (32-36); Mean Corpuscular Hgb 32.1 pg (27.0-32.0); Mean Corpuscular Volume 92.3 fL (81-99); Mean Platelet Vol. 11.1 fl (6.2-12.0); Monocyte# 0.53 X10^3/uL; Monocyte% 6.8 % (0-10); NRBC Flagged by Analyzer 0 % (0-5); Neutrophil # 6.27 X10^3/uL (2.7-7.7); Neutrophil % 80.4 % (47-70); Platelet Count 186 K/mm3 (150-450); RBC Distribution Width CV 11.4 % (11.6-14.6); RBC Distribution Width SD 38.5 fl (35.1-43.9); Red Blood Count 4.95 M/mm3 (4.2-5.4); White Blood Count 7.8 K/mm3 (4.4-11.0)
[2022-02-08] MEDS: 0.9% Normal Saline 1,000 ML 999 ML IV (05:06)
[2022-02-08 05:32] LABS: AST(SGOT) 20 U/L (15-37); Alanine Aminotransfer ALT/SGPT 27 U/L (13-56); Albumin, Serum 4.2 g/dL (3.2-5.0); Alkaline Phosphatase 82 U/L (45-117); Anion Gap 6 (5-15); BUN 19 mg/dL (7-18); BUN/Creat Ratio 25.5 RATIO (10-20); Bilirubin, Direct 0.17 mg/dL (0.00-0.30); Calcium,Total 9.3 mg/dL (8.5-10.1); Chloride 101 mmol/L (98-107); Creatinine, Serum 0.74 mg/dL (0.55-1.02); EST Glomerular Filtration Rate 99 mL/min (>60); Est Glom Filt Rate - Afr Amer 120 mL/min (>60); Estimated Creatinine Clearance 71.55 ml/min; Glucose 90 mg/dL (74-106); Lipase 79 U/L (73-393); Potassium 4.3 mmol/L (3.5-5.1); Protein, Total 8.2 g/dL (6.4-8.2); Sodium Level 135 mmol/L (136-145)
[2022-02-08 05:41] VITALS: BP 124/86; PULSE 82; RESP 16; TEMP 36.2; O2SAT 98
[2022-02-08 06:44] VITALS: BP 124/63; PULSE 69; RESP 16; TEMP 36.8; O2SAT 98
== END 2022-02-08 06:46 | disposition home or self-care (01) ==
PROVIDERS: Emergency Provider Emergency Medicine; PCP Family Medicine; Visit Provider Emergency Medicine
DX: R11.2 Nausea with vomiting, unspecified (principal); R10.13 Epigastric pain; Z79.899 Other long term (current) drug therapy
CPT/HCPCS: 80048; 80076; 81001; 83690; 85025; 96361; 96365; 96375; 99283; J7030; J2405

== ENCOUNTER → 2022-05-13 | Outpatient (CLI) | payer BC, OTHER, MEDICAID, SELFPAY ==
[2022-05-13 12:37] LABS: Absolute Lymphocyte Count 1.39 X10^3/uL (0.83-4.51); Absolute Neutrophil Count 1.7 X10^3/uL (2.0-7.7); Basophil# 0.02 X10^3/uL; Basophil% 0.5 % (0-1); Eosinophil# 0.11 X10^3/uL; Hematocrit 44.4 % (37-47); Hemoglobin 14.6 g/dL (12.0-15.0); Lymphocyte # 1.39 X10^3/ul (0.83-4.51); Mean Corp Hgb Conc 32.9 g/dL (32-36); Mean Corpuscular Hgb 31.4 pg (27.0-32.0); Mean Corpuscular Volume 95.5 fL (81-99); Mean Platelet Vol. 12.1 fl (6.2-12.0); Monocyte# 0.39 X10^3/uL; Monocyte% 10.7 % (0-10); NRBC Flagged by Analyzer 0 % (0-5); Neutrophil # 1.74 X10^3/uL (2.7-7.7); Neutrophil % 47.5 % (47-70); Platelet Count 190 K/mm3 (150-450); RBC Distribution Width CV 11.6 % (11.6-14.6); RBC Distribution Width SD 40.3 fl (35.1-43.9); Red Blood Count 4.65 M/mm3 (4.2-5.4); White Blood Count 3.7 K/mm3 (4.4-11.0)
[2022-05-13 12:51] LABS: AST(SGOT) 20 U/L (15-37); Alanine Aminotransfer ALT/SGPT 21 U/L (13-56); Albumin, Serum 3.8 g/dL (3.2-5.0); BUN 14 mg/dL (7-18); CRP < 2.90 mg/L (0.0-3.0); Creatinine, Serum 0.75 mg/dL (0.55-1.02); EST Glomerular Filtration Rate 97 mL/min (>60); Est Glom Filt Rate - Afr Amer 118 mL/min (>60)
[2022-05-13 13:07] LABS: Protein, Urine (Random) 29.9 mg/dL (<11.9); Protein:Creat Ratio 269 mg/g CRE (0-200)
[2022-05-14 14:20] LABS: Complement C3 131 mg/dL (82-167)
[2022-05-17 16:28] LABS: Anti-dsDNA Ab 2 IU/mL (0-9)
== END | disposition home or self-care (01) ==
LOC: BIMLAB 10:05
PROVIDERS: PCP Family Medicine; Referring Provider Internal Medicine Rheumatology; Visit Provider Internal Medicine Rheumatology
DX: M32.9 Systemic lupus erythematosus, unspecified (principal)
CPT/HCPCS: 36415; 82040; 82565; 82570; 84156; 84450; 84460; 84520; 85025; 86140; 86160; 86225

== ENCOUNTER → 2022-08-19 | Outpatient (CLI) | payer BC, OTHER, MEDICAID, SELFPAY ==
[2022-08-19 15:42] LABS: ALB/GLOB Ratio 0.9 RATIO (0.9-2.4); AST(SGOT) 16 U/L (15-37); Alanine Aminotransfer ALT/SGPT 23 U/L (13-56); Albumin, Serum 3.7 g/dL (3.2-5.0); Alkaline Phosphatase 71 U/L (45-117); Anion Gap 7 (5-15); BUN 17 mg/dL (7-18); BUN/Creat Ratio 18.2 RATIO (10-20); Calcium,Total 9.2 mg/dL (8.5-10.1); Chloride 106 mmol/L (98-107); Creatinine, Serum 0.93 mg/dL (0.55-1.02); EST Glomerular Filtration Rate 76 mL/min (>60); Est Glom Filt Rate - Afr Amer 92 mL/min (>60); Globulin 4.3 g/dL (2.2-4.2); Glucose 109 mg/dL (74-106); Sodium Level 139 mmol/L (136-145); Thyroid Stim Hormone (TSH) 1.41 uIU/mL (0.358-3.74)
[2022-08-19 15:55] LABS: Hemoglobin A1c 5.2 % (3.8-5.6)
== END | disposition home or self-care (01) ==
LOC: BIMLAB 14:10
PROVIDERS: PCP Family Medicine; Referring Provider Nurse Practitioner Primary Care; Visit Provider Nurse Practitioner Primary Care
DX: Z00.00 Encounter for general adult medical examination without abnormal findings (principal)
CPT/HCPCS: 36415; 80053; 83036; 84443

== ENCOUNTER → 2022-12-21 | Outpatient (CLI) | payer BC, OTHER, MEDICAID, SELFPAY ==
[2022-12-21 12:16] LABS: Absolute Lymphocyte Count 1.32 X10^3/uL (0.83-4.51); Absolute Neutrophil Count 2.1 X10^3/uL (2.0-7.7); Basophil# 0.03 X10^3/uL; Basophil% 0.7 % (0-1); Eosinophil# 0.17 X10^3/uL; Eosinophils% 4.1 % (0-5); Hematocrit 45.1 % (37-47); Hemoglobin 14.7 g/dL (12.0-15.0); Lymphocyte # 1.32 X10^3/ul (0.83-4.51); Lymphocyte % 31.8 % (19-41); Mean Corp Hgb Conc 32.6 g/dL (32-36); Mean Corpuscular Hgb 31.4 pg (27.0-32.0); Mean Corpuscular Volume 96.4 fL (81-99); Mean Platelet Vol. 11.7 fl (6.2-12.0); Monocyte# 0.52 X10^3/uL; Monocyte% 12.5 % (0-10); NRBC Flagged by Analyzer 0 % (0-5); Neutrophil # 2.11 X10^3/uL (2.7-7.7); Neutrophil % 50.9 % (47-70); Platelet Count 203 K/mm3 (150-450); RBC Distribution Width CV 11.7 % (11.6-14.6); RBC Distribution Width SD 41.1 fl (35.1-43.9); Red Blood Count 4.68 M/mm3 (4.2-5.4); White Blood Count 4.2 K/mm3 (4.4-11.0)
[2022-12-21 12:40] LABS: AST(SGOT) 21 U/L (15-37); Alanine Aminotransfer ALT/SGPT 36 U/L (13-56); Albumin, Serum 3.6 g/dL (3.2-5.0); BUN 17 mg/dL (7-18); CRP < 2.90 mg/L (0.0-3.0); Creatinine, Serum 0.74 mg/dL (0.55-1.02); EST Glomerular Filtration Rate 100 mL/min (>60); Est Glom Filt Rate - Afr Amer 121 mL/min (>60)
[2022-12-21 12:56] LABS: Protein, Urine (Random) 21.7 mg/dL (<11.9); Protein:Creat Ratio 132 mg/g CRE (0-200)
[2022-12-22 17:23] LABS: Anti-dsDNA Ab 1 IU/mL (0-9)
[2022-12-22 19:38] LABS: Complement C3 134 mg/dL (82-167)
== END | disposition home or self-care (01) ==
LOC: BIMLAB 08:04
PROVIDERS: PCP Family Medicine; Referring Provider Internal Medicine Rheumatology; Visit Provider Internal Medicine Rheumatology
DX: M32.9 Systemic lupus erythematosus, unspecified (principal); E66.9 Obesity, unspecified
CPT/HCPCS: 36415; 82040; 82565; 82570; 84156; 84450; 84460; 84520; 85025; 86140; 86160; 86225

== ENCOUNTER → 2023-10-03 | Outpatient (CLI) | payer BC, OTHER, MEDICAID, SELFPAY ==
[2023-10-03 08:07] LABS: Mucous, Urine 0 SEEN /hpf (<or=2+); Red Blood Cells-Urine 0 SEEN /hpf (0-5); White Blood Cells 0 SEEN /hpf (0-5)
[2023-10-03 12:22] LABS: Absolute Lymphocyte Count 1.64 X10^3/uL (0.83-4.51); Absolute Neutrophil Count 2.5 X10^3/uL (2.0-7.7); Basophil# 0.04 X10^3/uL; Basophil% 0.8 % (0-1); Color, Urine Yellow (Yellow); Eosinophil# 0.16 X10^3/uL; Eosinophils% 3.3 % (0-5); Glucose, Dipstick Normal (Normal); Hematocrit 44.5 % (37-47); Hemoglobin 14.4 g/dL (12.0-15.0); Ketone-Dipstick Negative (Negative); Leukocyte Esterase-Dipstick Negative /ul (Negative); Lymphocyte # 1.64 X10^3/ul (0.83-4.51); Lymphocyte % 33.5 % (19-41); Mean Corp Hgb Conc 32.4 g/dL (32-36); Mean Corpuscular Hgb 31.2 pg (27.0-32.0); Mean Corpuscular Volume 96.3 fL (81-99); Mean Platelet Vol. 12.2 fl (6.2-12.0); Monocyte# 0.54 X10^3/uL; NRBC Flagged by Analyzer 0 % (0-5); Neutrophil # 2.47 X10^3/uL (2.7-7.7); Neutrophil % 50.4 % (47-70); Nitrite-Dipstick Negative (Negative); Occult Blood-Urine Negative /ul (Negative); Platelet Count 189 K/mm3 (150-450); Protein-Dipstick Negative (Negative); RBC Distribution Width CV 11.6 % (11.6-14.6); Red Blood Count 4.62 M/mm3 (4.2-5.4); Specific Gravity, Urine 1.015 (1.002-1.030); Urine Bilirubin Dipstick Negative (Negative); Urine Clarity Clear (Clear); Urine Urobilinogen Normal (Normal); White Blood Count 4.9 K/mm3 (4.4-11.0)
[2023-10-03 12:29] LABS: Bacteria 1+ /hpf (None Seen); Squamous Epithelial Cells - UA 0-5 SEEN /hpf (5-10)
[2023-10-03 12:45] LABS: AST(SGOT) 20 U/L (15-37); Alanine Aminotransfer ALT/SGPT 23 U/L (13-56); Albumin, Serum 3.8 g/dL (3.2-5.0); Alkaline Phosphatase 66 U/L (45-117); Anion Gap 6 (5-15); BUN 15 mg/dL (7-18); BUN/Creat Ratio 20.8 RATIO (10-20); Calcium,Total 9.1 mg/dL (8.5-10.1); Chloride 105 mmol/L (98-107); Creatinine, Serum 0.72 mg/dL (0.55-1.02); EST Glomerular Filtration Rate 101 mL/min (>60); Est Glom Filt Rate - Afr Amer 123 mL/min (>60); Globulin 3.9 g/dL (2.2-4.2); Glucose 101 mg/dL (74-106); Protein, Total 7.7 g/dL (6.4-8.2); Sodium Level 138 mmol/L (136-145); Vitamin D,25 Hydroxy 47.3 ng/mL
[2023-10-03 12:54] LABS: Protein, Urine (Random) 15.7 mg/dL (<11.9); Protein:Creat Ratio 158 mg/g CRE (0-200)
[2023-10-04 07:08] LABS: Complement C3 131 mg/dL (82-167)
[2023-10-04 13:08] LABS: Anti-dsDNA Ab 1 IU/mL (0-9)
== END | disposition home or self-care (01) ==
LOC: BIMLAB 08:04
PROVIDERS: PCP Family Medicine; Visit Provider Internal Medicine
DX: M32.9 Systemic lupus erythematosus, unspecified (principal)
CPT/HCPCS: 36415; 80053; 81001; 82306; 82570; 84156; 85025; 86160; 86225

== ENCOUNTER 2024-03-13 06:00 | Day surgery (SDC) | payer BC, OTHER, MEDICAID, SELFPAY ==
[2024-03-13 06:32] VITALS: BP 113/87; PULSE 83; RESP 18; TEMP 37; O2SAT 98; BMI 30.6
[2024-03-13] MEDS: Lactated Ringers 1,000 ML 15 ML IV (06:39)
[2024-03-13] MEDS: Mupirocin Ointment 22gm Tube 1 APPLIC (06:51)
--- NOTE | 2024-03-13 07:24 | OP.PCM_ITS ---
Problems Associated Problem List Diagnoses (1) Onychogryphosis: (2) Pain of right great toe: Report of Operation Date of Procedure: 03/13/24 Pre-Operative Diagnosis: 1. Onychogryphosis, right hallux 2. Pain in toe, right Post-Operative Diagnosis: 1. Onychogryphosis, right hallux 2. Pain in toe, right Surgery/Procedure Performed:: 1. Right hallux matrixectomy Description of Surgical Findings:: 1. Complete removal of the thickened right hallux toenail Surgeon: Josh Narvaez charcoal kiln burner: None Type of Anesthesia: General and Local Anesthesiologist: Don Chance Special Medications: Per anesthesia Specimen's removed: None Drains: None Estimated Blood Loss (mL): 5 mL Fluids Replaced: Per anesthesia Description of Procedure: Indications For Operation: [Mr/Ms/Mrs is a AGE Male/Female] who was admitted to [facility] for [...] due to [...]. The nature of the problem, anticipated procedures, postop recovery/convalences and risk/complications include but not limited to infection, wound healing complications, digital amputation, hypertrophic scarring, numbness, tingling, chronic pain, CRPS, over and under correction, recurrence of deformity, DVT and or PE and the need for further surgery have been discussed in great detail with the patient. All questions have been answered to the patient's satisfaction. There are no guarantees given as to the outcome of the procedure. Description of Procedure: Under mild sedation, the patient was brought into the operating room and placed on the operating table in supine position. Once the patient was under [General / MAC] anesthesia [with Laryngeal Mask Airway / Endotracheal tube], the [Right / Left] lower extremity was blocked using approximately [#] 0.5% Marcaine plain. Next, a well-padded thigh tourniquet was applied to the [right\left] lower extremity. Next, the [{Right / Left}] lower extremity was prepped and draped in normal aseptic manner. Next, a timeout was then undertaken verifying the correct patient, extremity, visibility of preoperative markings, availability of the equipment. The patient tolerated the procedure and anesthesia well and apparent satisfactory condition and was transported to the PACU for further monitoring prior to discharge [home / back to the floor]. Vital signs stable and vascular status intact to all digits bilateral. Post Operative Plan: Weightbearing: Full weightbearing to right lower extremity. Full weightbearing left lower extremity. Antibiotics: 2 g Ancef through the IV DVT Prophylaxis: Not indicated for this case Leigh: None Dressing: Triple-lumen antibiotic, Adaptic, dry sterile dressing Coban wrap, Rajinder bandage X-Rays: Post-operative films taken on the operating room. Pain Medication: [id number] ibuprofen and or Tylenol Follow-up: Patient will follow-up with Dr. Narvaez 1 week postop in private office. Grafts/Implants Used: None Complications None Admit VTE Documentation VTE Present on Admission: No VTE Mechan Device Prophylaxis: None Reason prophylaxis not ordered:: Procedure Not Indicated
--- NOTE | 2024-03-13 07:24 | PCM.OPRPT ---
Problems Associated Problem List Diagnoses (1) Onychogryphosis: (2) Pain of right great toe: Report of Operation Date of Procedure: 03/13/24 Pre-Operative Diagnosis: 1. Onychogryphosis, right hallux 2. Pain in toe, right Post-Operative Diagnosis: 1. Onychogryphosis, right hallux 2. Pain in toe, right Surgery/Procedure Performed:: 1. Right hallux matrixectomy Description of Surgical Findings:: 1. Complete removal of the thickened right hallux toenail Surgeon: Josh Narvaez furniture arranger: None Type of Anesthesia: Local and MAC Anesthesiologist: Don Chance Special Medications: Per anesthesia Specimen's removed: None Drains: None Estimated Blood Loss (mL): 5 mL Fluids Replaced: Per anesthesia Description of Procedure: Indications For Operation: Ms. Razo is a 28-year-old female who was admitted to [facility] [place] for right hallux matrixectomy due to the patient's behavioral health status and unable to have an office matrixectomy procedure performed. Due to patient's mental health capacity it was necessary to get approval through the patient's insurance as she is nonverbal and uses her parents for communication and support.due to the thickening and elongation of the right hallux toenail it had deemed necessary at this time to get approval for the patient's insurance to take her to the operating room to perform a right hallux matrixectomy under monitored anesthesia care for safety of the patient's wellbeing as well as to relieve her constant pain. The nature of the problem, anticipated procedures, postop recovery/convalences and risk/complications include but not limited to infection, wound healing complications, digital amputation, hypertrophic scarring, numbness, tingling, chronic pain, CRPS, over and under correction, recurrence of deformity, DVT and or PE and the need for further surgery have been discussed in great detail with the patient. All questions have been answered to the patient's satisfaction. There are no guarantees given as to the outcome of the procedure. Description of Procedure: Under mild sedation, the patient was brought into the operating room and placed on the operating table in supine position. Once the patient was under monitored anesthesia care, the right hallux was blocked using approximately 5 cc 0.5% Marcaine plain. Next the right hallux was prepped and draped in normal aseptic manner. A right hallux toe turnicot was applied to the right hallux without incident. Next, a timeout was then undertaken verifying the correct patient, extremity, visibility of preoperative markings, availability of the equipment. Procedure #1, right hallux matrixectomy (CPT code: 46710?T5, DX: L60.2) Next, attention was directed to the right hallux. After local anesthesia was confirmed. Using a straight [place] elevator the proximal nail skin was removed from the nail plate. Next, the inferior nail plate was freed from the nail bed. Using a curved [place], the right hallux toenail was removed from the nailbed without incident. The nail bed was inspected and showed complete removal of the right hallux nail plate. Using a curette the nail matrix was scraped. 3 applications of phenol were applied to the nail matrix without incident. The phenol solution was diluted/neutralized with 70% isopropyl alcohol. Again, the right hallux was wiped clean and patted dry. Next, mupirocin 2% cream was applied to the nail bed followed by a 1 inch sterile Band-Aid, folded 4 x 4 and 2 inch Coban wrap for compression followed by one 4 inch Rajinder bandage. The patient tolerated the procedure and anesthesia well and apparent satisfactory condition and was transported to the PACU for further monitoring prior to discharge [home / back to the floor]. Vital signs stable and vascular status intact to all digits bilateral. Post Operative Plan: Weightbearing: Full weightbearing to right lower extremity. Full weightbearing left lower extremity. Antibiotics: 2 g Ancef through the IV DVT Prophylaxis: Not indicated for this case Leigh: None Dressing: Triple-lumen antibiotic, Adaptic, dry sterile dressing Coban wrap, Rajinder bandage X-Rays: Post-operative films taken on the operating room. Pain Medication: [id number] ibuprofen and or Tylenol Follow-up: Patient will follow-up with Dr. Narvaez 1 week postop in private office. Soaking instructions were verbally educated to the parent as well as in the patient's discharge packet. Grafts/Implants Used: None Complications None Admit VTE Documentation VTE Present on Admission: No VTE Mechan Device Prophylaxis: None Reason prophylaxis not ordered:: Procedure Not Indicated
[2024-03-13] MEDS: Cefazolin 2 GM in 0.9% Normal Saline (100mL Bag) 100 ML IV (07:25)
[2024-03-13] MEDS: Bupivacaine Mpf 0.5% 30 ML VIAL (07:36)
[2024-03-13 07:47] VITALS: BP 109/75; BP 113/87; PULSE 85; RESP 20; TEMP 37.1; O2SAT 96
[2024-03-13 08:00] VITALS: BP 108/76; BP 113/87; PULSE 76; RESP 20; O2SAT 97
[2024-03-13 08:02] VITALS: BP 111/62; BP 113/87; PULSE 75; RESP 20; TEMP 36.8; O2SAT 96
[2024-03-13 08:22] VITALS: BP 113/87
== END 2024-03-13 08:31 | disposition home or self-care (01) ==
LOC: SDC 06:01 → AC 06:04
PROVIDERS: PCP Family Medicine; Referring Provider Family Medicine; Visit Provider Podiatrist Foot & Ankle Surgery
PROC: (CPT 11750; principal; 2024-03-13 07:15)
DX: L60.2 Onychogryphosis (principal); M32.9 Systemic lupus erythematosus, unspecified; M79.674 Pain in right toe(s); Q93.51 Angelman syndrome; F79 Unspecified intellectual disabilities; Z79.899 Other long term (current) drug therapy
CPT/HCPCS: 11750; 00400; J7120; J2405